=== PATIENT | male | born 1970 | race Caucasian/White ===

== ENCOUNTER 2022-01-28 14:39 | Inpatient (IN) ==
[2022-01-28] MEDS ORDERED: SODIUM CHLORIDE 0.9% 1000ML 1,000 ML IV STA (14:57)
[2022-01-28] MEDS ORDERED: ONDANSETRON INJ 2 MG/ML 2 ML VIAL IV STA (14:57)
[2022-01-28] MEDS ORDERED: PIPERACILLIN/TAZOBACTAM 4.5 GM/120 ML BAG IV ONE (15:26)
[2022-01-28 15:35] LABS: Basophils # (auto) 0.05 K/uL (0-0.2); Basophils % (auto) 0.8 %; Eosinophils # (auto) 0.05 K/uL (0-0.50); Eosinophils % (auto) 0.8 %; Hematocrit (blood only) 43.7 % (40.1-51.0); Hemoglobin 15.7 g/dl (14.0-18.0); Immature Granulocytes # (auto) 0.02 K/uL (0.00-0.02); Immature Granulocytes % (auto) 0.3 %; Lymphocytes % (auto) 22.9 %; Mean Corpuscular Hgb Conc 35.9 g/dL (32.0-36.0); Mean Corpuscular Volume 86.2 fL (80.0-100.0); Mean Platelet Volume 9.8 fL (9.4-12.4); Monocytes # (auto) 0.73 K/uL (0.24-0.82); Monocytes % (auto) 11.1 %; Neutrophils % (auto) 64.1 %; Platelet Count 245 K/uL (130-400); RDW Coefficient of Variation 12.5 % (11.5-14.5); Red Blood Count 5.07 M/uL (4.63-6.08); White Blood Count 6.55 K/ul (4.8-10.8)
--- NOTE | 2022-01-28 15:36 | Emergency Department Note ---
Impression & Plan RUQ abdominal pain, Weakness, Vomiting, Near syncope, Gall stones ED Provider Note NAME: WIL VILLAFUERTE AGE: 51 SEX: M : 1970 ARRIVES VIA: Walk-In INFORMANT: [Patient] ED PROVIDER(S): [Clark Daniel MD] CHIEF COMPLAINT: Abdominal pain HISTORY OF PRESENT ILLNESS: The patient is a 51-year-old male who has felt poorly for weeks. He has lost 40 pounds. He has been sweating, he has been weak, has been exhausted. There has been nausea and vomiting and now, more so just persistent nausea. He has had intermittent mild to moderate right upper quadrant abdominal pain. The patient nearly passed out in the ED waiting room. The patient did have an EGD just recently, things were okay on this study. Today, the patient saw Dr. Wolfe of general surgery. He does have a known gallstone. The patient looked so awful at the office he was referred to the ER for further work-up and hospitalization. The patient gives a history of a brain malignancy. He does not have a headache. He has not noticed arm or leg weakness. There is no chest pain, he has not run a fever. No urinary complaints other than the fact that his urine output decreased. REVIEW OF SYSTEMS: See HPI for pertinent positives and negatives. A total of ten systems were reviewed and were otherwise negative. PMHx/PSHx: See Below SOCIAL HISTORY: See Below. PHYSICAL EXAM: GENERAL: Patient is in no acute distress. HEENT: No acute trauma, normocephalic atraumatic, mucous membranes dry, no nasal congestion, no scleral icterus. NECK: No stridor, no adenopathy, no meningismus, trachea is midline. LUNGS: Clear to auscultation bilaterally, no wheeze, no rhonchi, breath sounds e qual. HEART: Without murmurs gallops or rubs, regular rate and rhythm. ABDOMEN: Soft, mildly tender in the right upper quadrant and epigastrium, bowel sounds positive, no peritonitis. EXTREMITIES: No cyanosis or edema, full range of motion of all the joints without pain or difficulty, no signs for acute trauma. NEUROLOGIC: Oriented x 3, no acute motor or sensory deficits, no focal weakness. SKIN: No rash, no jaundice, no diaphoresis. Pale. DIFFERENTIAL DIAGNOSIS: Infection, dehydration, cholecystitis, brain malignancy, renal or liver failure, metabolic abnormality, hypo/hyperglycemia, electrolyte disturbance, anemia, hypoxia, cardiac sources, intracerebral event, toxicologic issues, stroke, TIA, as well as other pathologies. EMERGENCY DEPARTMENT COURSE/PROCEDURES: ECG: Indication was weakness. The ECG shows a normal sinus rhythm with a rate of 87. There is an inverted T wave in lead III. There is no ST elevation, no PVCs. The QTc is 442. Continuous Cardiac Monitoring: An order was placed for continuous cardiac monitoring. The monitor shows a rate of 68 with normal sinus rhythm. MEDICAL DECISION MAKING: There is no leukocytosis or concerning anemia. There is a normal platelet count. No significant electrolyte abnormality in need of emergent correction. Lactic acid level is not elevated making severe sepsis less likely. No concerning liver enzyme elevation. ECG shows a normal sinus rhythm, no obvious ischemia. Cardiac enzyme testing x1 is not consistent with acute cardiac injury. The patient appeared to be in a euthyroid state. No evidence for pancreatitis by our testing. Urinalysis showed dehydration with 4+ ketones, there was no infection. COVID test returned negative. Chest x-ray did not show pneumonia or CHF. Abdominal and pelvis CT was essentially unremarkable for any acute surgical pathology. Brain CT showed some changes from his previous neurosurgery, no acute process found. On exam, the patient appeared quite dehydrated and pale. He was not febrile. The patient was given IV saline, 2 L. He received IV Zosyn as empiric antibiotic coverage. He was given IV Zofran. The patient is in need of a hospital stay. He has lost 40 pounds, he has almost passed out, he is dehydrated with persistent nausea and vomiting. He does have gallbladder disease but, as to whether or not this is the cause of his entire presentation is unclear. I spoke with the patient and nurse case manager. I spoke with the on-call hospitalist. Past Med/Surg History Medical History Brain tumor blue cell tumor, large cell neuroendocrine Chronic sinusitis Depression GERD (gastroesophageal reflux disease) HLD (hyperlipidemia) Surgical History (Updated 01/28/22 @ 17:34 by Cece Rothman PA-C) History of arthroscopic knee surgery History of craniotomy bifronto orbital craniotomy, to approach extra-axial anterior skull base mass, excision of extra-axial intradural anterior skull base mass, excision of extradural nasal component, fat graft harvest from lower left abdominal quadrant, frontal sinus exenteration, packing and closure using pedicle pericranial flap on 11/05/[address] Lilia PH D History of esophagogastroduodenoscopy (EGD) Family History (Updated 01/28/22 @ 17:35 by Cece Rothman PA-C) Mother Diabetes Heart failure Social History Smoking Status: Never smoker Hx Alcohol Use: Yes Hx Substance Use: No Preferred Language: Lao Communication Ability: Effective marital status: Current Living Situation: Spouse Feels Safe at Home: Yes Allergies Allergies Allergy/AdvReac Type Severity Reaction Status Date / Time No Known Allergies Allergy Unverified 01/28/22 17:23 Home Meds Home Medications Medication Instructions Recorded Confirmed fluoxetine 40 mg capsule 40 mg PO QAM 01/28/22 01/28/22 omeprazole 20 mg capsule,delayed 20 mg PO QAM 01/28/22 01/28/22 release ondansetron HCl 4 mg tablet 8 mg PO Q8 PRN 01/28/22 01/28/22 simvastatin 20 mg tablet 20 mg PO HS 01/28/22 01/28/22 Results & Data (ED) Vital Signs Vital Signs - 24 hr 01/28/22 14:43 01/28/22 15:17 01/28/22 15:18 Temperature 36.6 C Temperature Source Oral Pulse Rate 102 H Pulse Rate [Left Finger] 68 Respiratory Rate 18 20 Respiratory Effort / Characteristics Non-Labored Spontaneous Respiratory Depth Blood Pressure 124/91 Blood Pressure [Left Arm] 114/86 Blood Pressure Mean 102 Blood Pressure Mean [Left Arm] 95 Pulse Oximetry 97 99 Oxygen Delivery Method Room Air Room Air Room Air Sepsis Recent Fever Within 48 Hours No Sepsis New/Unexplained Change in Mental Status No Sepsis Action Taken by Nursing No Action Required 01/28/22 17:30 Temperature Temperature Source Pulse Rate Pulse Rate [Left Finger] 68 Respiratory Rate 20 Respiratory Effort / Characteristics Non-Labored Respiratory Depth Normal Blood Pressure Blood Pressure [Left Arm] 137/96 Blood Pressure Mean Blood Pressure Mean [Left Arm] 109 Pulse Oximetry 98 Oxygen Delivery Method Room Air Sepsis Recent Fever Within 48 Hours Sepsis New/Unexplained Change in Mental Status Sepsis Action Taken by Detention Medications Current Medication List: was personally reviewed by me Laboratory Data Attestation: I reviewed the patient's lab results. Result diagrams: 01/28/22 15:10 01/28/22 15:10 Lab Results 01/28/22 01/28/22 01/28/22 Range/Units 15:10 15:10 15:10 WBC 6.55 (4.8-10.8) K/ul RBC 5.07 (4.63-6.08) M/uL Hgb 15.7 (14.0-18.0) g/dl Hct 43.7 (40.1-51.0) % MCV 86.2 (80.0-100.0) fL MCH 31.0 (25.0-34.0) pg MCHC 35.9 (32.0-36.0) g/dL RDW Std Deviation 39.0 (36.4-46.3) fL RDW Coeff of Katherine 12.5 (11.5-14.5) % Plt Count 245 (130-400) K/uL MPV 9.8 (9.4-12.4) fL Immature Gran % (Auto) 0.3 % Neut % (Auto) 64.1 % Lymph % (Auto) 22.9 % [place] % (Auto) 11.1 % Eos % (Auto) 0.8 % Baso % (Auto) 0.8 % Neut # (Auto) 4.20 (1.4-6.5) K/uL Lymph # (Auto) 1.50 (1.2-3.4) K/uL [place] # (Auto) 0.73 (0.24-0.82) K/uL Eos # (Auto) 0.05 (0-0.50) K/uL Baso # (Auto) 0.05 (0-0.2) K/uL Immature Gran # (Auto) 0.02 (0.00-0.02) K/uL Sodium 134 L (136-145) mmol/L Potassium 4.3 (3.5-5.1) mmol/L Chloride 99 (98-107) mmol/L Carbon Dioxide 23 (21-32) mmol/L Anion Gap 12 H (3-11) BUN 19 (6-23) mg/dl Creatinine 0.94 (0.6-1.4) mg/dl Est Cr Clr Drug Dosing 118.5 ml/min Est GFR ( Amer) 107.6 ml/min Est GFR (Non-Af Amer) 92.8 ml/min BUN/Creatinine Ratio 20.2 H (10-20) Glucose 70 (70-99(Fasting)) mg/dl Lactate 0.6 (0.4-2.0) mmol/L Calcium 9.8 (8.5-10.1) mg/dl Magnesium 1.9 (1.7-2.4) mg/dl Total Bilirubin 1.0 (0.2-1.0) mg/dl AST 22 (13-39) U/L ALT 39 (7-52) U/L Alkaline Phosphatase 81 (34-104) U/L Troponin I High Sens 3.3 (0-20) pg/ml Total Protein 7.4 (6.0-8.3) gm/dl Albumin 4.3 (3.4-5.0) gm/dl Globulin 3.1 (2.5-4.0) gm/dl Albumin/Globulin Ratio 1.4 (0.9-2) Lipase 24 (11-82) U/L TSH (0.300-4.500) uIu/ml Urine Color Urine Appearance (Clear) Urine pH (4.5-7.5) Ur Specific [place] (1.000-1.030) Urine Protein (Negative) Urine Glucose (UA) (Negative) Urine Ketones (Negative) Urine Blood (Negative) Urine Nitrite (Negative) Urine Bilirubin (Negative) Urine Urobilinogen (Negative) Ur Leukocyte Esterase (Negative) Urine WBC (Auto) (0-5) /hpf Urine RBC (Auto) (0-4) /hpf U Hyaline Cast (Auto) (0-5) /lpf U Epithel Cells (Auto) (0-5) /lpf Urine Bacteria (Auto) (Negative) SARS-CoV-2, RNA, NAAT (NEGATIVE) 01/28/22 01/28/22 01/28/22 Range/Units 15:10 15:24 17:05 WBC (4.8-10.8) K/ul RBC (4.63-6.08) M/uL Hgb (14.0-18.0) g/dl Hct (40.1-51.0) % MCV (80.0-100.0) fL MCH (25.0-34.0) pg MCHC (32.0-36.0) g/dL RDW Std Deviation (36.4-46.3) fL RDW Coeff of Katherine (11.5-14.5) % Plt Count (130-400) K/uL MPV (9.4-12.4) fL Immature Gran % (Auto) % Neut % (Auto) % Lymph % (Auto) % [place] % (Auto) % Eos % (Auto) % Baso % (Auto) % Neut # (Auto) (1.4-6.5) K/uL Lymph # (Auto) (1.2-3.4) K/uL [place] # (Auto) (0.24-0.82) K/uL Eos # (Auto) (0-0.50) K/uL Baso # (Auto) (0-0.2) K/uL Immature Gran # (Auto) (0.00-0.02) K/uL Sodium (136-145) mmol/L Potassium (3.5-5.1) mmol/L Chloride (98-107) mmol/L Carbon Dioxide (21-32) mmol/L Anion Gap (3-11) BUN (6-23) mg/dl Creatinine (0.6-1.4) mg/dl Est Cr Clr Drug Dosing ml/min Est GFR ( Amer) ml/min Est GFR (Non-Af Amer) ml/min BUN/Creatinine Ratio (10-20) Glucose (70-99(Fasting)) mg/dl Lactate (0.4-2.0) mmol/L Calcium (8.5-10.1) mg/dl Magnesium (1.7-2.4) mg/dl Total Bilirubin (0.2-1.0) mg/dl AST (13-39) U/L ALT (7-52) U/L Alkaline Phosphatase (34-104) U/L Troponin I High Sens (0-20) pg/ml Total Protein (6.0-8.3) gm/dl Albumin (3.4-5.0) gm/dl Globulin (2.5-4.0) gm/dl Albumin/Globulin Ratio (0.9-2) Lipase (11-82) U/L TSH 1.065 (0.300-4.500) uIu/ml Urine Color Dark Yellow Urine Appearance Clear (Clear) Urine pH 5.5 (4.5-7.5) Ur Specific [place] 1.039 H (1.000-1.030) Urine Protein Trace H (Negative) Urine Glucose (UA) Negative (Negative) Urine Ketones 4+ H (Negative) Urine Blood Negative (Negative) Urine Nitrite Negative (Negative) Urine Bilirubin 1+ H (Negative) Urine Urobilinogen Negative (Negative) Ur Leukocyte Esterase Negative (Negative) Urine WBC (Auto) 1-5 (0-5) /hpf Urine RBC (Auto) 0-4 (0-4) /hpf U Hyaline Cast (Auto) 5-10 H (0-5) /lpf U Epithel Cells (Auto) 10-20 H (0-5) /lpf Urine Bacteria (Auto) Negative (Negative) SARS-CoV-2, RNA, NAAT NEGATIVE (NEGATIVE) Administered Medications Sodium Chloride (Nss 1000ml) 1,000 mls @ 80 mls/hr IV .[id number] DEMETRIA Stop: 01/29/22 20:03 Last Admin: 01/28/22 19:51 Dose: 80 mls/hr Documented by: [id number] Discontinued Medications Sodium Chloride (Nss 1000ml) 1,000 mls @ 999 mls/hr IV .Q1H1M STA Stop: 01/28/22 15:57 Last Infusion: 01/28/22 16:29 Dose: 0 mls/hr Documented by: [id number] Admin: 01/28/22 15:25 Dose: 999 mls/hr Documented by: [id number] Piperacillin Sod/Tazobactam Sod (Zosyn) 4.5 gm in 120 mls @ 240 mls/hr IV NOW ONE Stop: 01/28/22 15:55 Last Infusion: 01/28/22 18:26 Dose: 0 mls/hr Documented by: [id number] Admin: 01/28/22 17:02 Dose: 240 mls/hr Documented by: [id number] Sodium Chloride (Nss 1000ml) 1,000 mls @ 999 mls/hr IV .Q1H1M ONE Stop: 01/28/22 18:03 Last Infusion: 01/28/22 19:53 Dose: 0 mls/hr Documented by: [id number] Admin: 01/28/22 18:00 Dose: 999 mls/hr Documented by: [id number] Ioversol (Optiray 320 100ml) 90 ml IV ONCE ONE Stop: 01/28/22 16:42 Last Admin: 01/28/22 16:42 Dose: 90 ml Documented by: [id number] Ondansetron HCl (Ondansetron Inj 2 Mg/Ml 2 Ml Vial) 4 mg IV NOW STA Stop: 01/28/22 14:58 Last Admin: 01/28/22 15:25 Dose: 4 mg Documented by: [id number] Imaging Data Radiologist's Impression: Abdomen/Pelvis CT 01/28/22 14:57 CT SCAN OF THE ABDOMEN AND PELVIS WITH IV CONTRAST CLINICAL HISTORY: Right-sided abdominal pain. Vomiting. COMPARISON STUDY: No priors. TECHNIQUE: Following the IV administration of 90 cc of Optiray 320, CT scan of the abdomen and pelvis is performed from the lung bases to the proximal femora. Images are reviewed in the axial, sagittal, and coronal planes. IV contrast was administered without complication. A dose lowering technique was utilized adhering to the principles of ALARA. FINDINGS: Lung bases: The tip of a central venous infusion port terminates at the cavoatri al junction. The heart is normal in size and without pericardial effusion. The lung bases are clear noting dependent atelectasis. Liver: The contrast-enhanced liver is normal in size, contour, and attenuation. Focal fatty infiltration is seen adjacent to the falciform ligament. There is no intrahepatic biliary ductal dilatation. The hepatic veins and portal veins are patent. Gallbladder: Unremarkable. Spleen: Normal in size and attenuation. Pancreas: Unremarkable. Adrenal glands: Unremarkable. Kidneys: The contrast enhanced kidneys are normal in size and without hydronephrosis. The kidneys enhance symmetrically. Abdominal vasculature: The abdominal aorta is normal in course and caliber noting mild atherosclerotic calcification. Bowel: There is advanced colonic diverticulosis without CT evidence of acute diverticulitis. No bowel obstruction is seen. Residual enteric contrast is alegria ggested throughout the colon. The appendix is well-visualized and normal. Peritoneum: There is no intraperitoneal free air or abdominal ascites. Lymphadenopathy: None. Pelvic viscera: The bladder, prostate, and seminal vesicles are normal as visualized. Skeletal structures: No lytic or blastic lesions are seen. There is moderate to advanced disc space narrowing at L5-S1 with a posterior disc osteophyte complex. 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 IMPRESSION: 1. No acute infectious or inflammatory findings are identified in the abdomen or pelvis. 2. Advanced colonic diverticulosis without CT evidence of acute diverticulitis. 3. Avascular necrosis of the femoral heads. ACT 112: Negative or not required by law. Electronically signed by: Clark Yang M.D. 01/28/2022 4:56 PM Chest X-Ray 01/28/22 14:57 XR chest 1V portable HISTORY: Generalized abdominal pain. COMPARISON: None. FINDINGS: The lungs are clear. Cardiac silhouette is normal in size. No pleural effusions. No pneumothorax. Right-sided Port-A-Cath terminates in the distal SVC. IMPRESSION: No acute process. ACT 112: Negative or not required by law. Electronically signed by: Peng Rao M.D. 01/28/2022 3:[address] 01/28/22 14:57 CT SCAN OF THE BRAIN COMBO CLINICAL HISTORY: Vomiting. Reported history of brain tumor. COMPARISON STUDY: No priors. TECHNIQUE: [place] CT scan of the brain is performed from the vertex to the skull base before and following the IV administration of 90 cc of Optiray 320. IV contrast was administered without complication. A dose lowering technique was utilized adhering to the principles of ALARA. CT DOSE: 2295.10 mGy.cm FINDINGS: Brain parenchyma: Bifrontal encephalomalacia is likely related to previous surgical resection. Minimal hyperdensity deep to the craniotomy site likely represents postoperative change. There is no evidence of enhancing lesion at the operative site. There is no hemorrhage, mass effect, or evidence of acute territorial ischemia by CT criteria. Patel-white matter differentiation is preserved. No extra-axial fluid collection is seen. Ventricles, sulci, cisterns: Normal in configuration. Intracranial vasculature: The visualized intracranial vessels the skull base appear patent. There is mild atherosclerotic calcification of the cavernous carotid arteries. Calvarium: There is postoperative change from previous frontal craniotomy. No destructive calvarial lesion is seen. Sinuses and mastoids: There is complete opacification of the frontal sinuses. The remaining visualized paranasal sinuses are clear. The mastoid air cells are well pneumatized. Orbits: The bony orbits are grossly intact. IMPRESSION: 1. There is no hemorrhage, mass effect, or evidence of acute territorial ischemia by CT criteria. 2. Postoperative change and bifrontal encephalomalacia as above. There is no CT evidence of recurrent or residual enhancing lesion. ACT 112: Negative or not required by law. Electronically signed by: Clark Yang M.D. 01/28/2022 4:51 PM Discharge Plan Visit Data Chief Complaint: Abdominal Pain Stated Complaint: ABDOMINAL PAIN JULES WOLFE REF ED Provider: Clark Daniel Discharge Problem: RUQ abdominal pain, Weakness, Vomiting, Near syncope, Gall stones Patient Disposition: Admitted As Inpatient Condition: Fair Discharge Instructions Interventions: ED Discharge Assessment Last Done: 01/28/22 18:52
[2022-01-28 16:17] LABS: Troponin I High Sensitivity 3.3 pg/ml (0-20)
[2022-01-28 16:21] LABS: Albumin Globulin Ratio 1.4 (0.9-2); Albumin Level 4.3 gm/dl (3.4-5.0); BUN Creatinine Ratio 20.2 (10-20); Calcium 9.8 mg/dl (8.5-10.1); Creatinine Clr Calc Pharmacy 118.5 ml/min; Est GFR (African American) 107.6 ml/min; Est GFR (Non-African American) 92.8 ml/min; Globulin 3.1 gm/dl (2.5-4.0); Magnesium 1.9 mg/dl (1.7-2.4); Potassium 4.3 mmol/L (3.5-5.1); Total Protein 7.4 gm/dl (6.0-8.3)
[2022-01-28] MEDS ORDERED: OPTIRAY 320 100ml IV ONE (16:41)
--- NOTE | 2022-01-28 16:53 | CT Scan Report ---
CT SCAN OF THE BRAIN COMBO CLINICAL HISTORY: Vomiting. Reported history of brain tumor. COMPARISON STUDY: No priors. TECHNIQUE: [place] CT scan of the brain is performed from the vertex to the skull base before and follow ing the IV administration of 90 cc of Optiray 320. IV contrast was administered without complication. A dose lowering technique was utilized adhering to the principles of ALARA. CT DOSE: 2295.10 mGy.cm FINDINGS: Brain parenchyma: Bifrontal encephalomalacia is likely related to previous surgical resection. Minima l hyperdensity deep to the craniotomy site likely represents postoperative change. There is no eviden ce of enhancing lesion at the operative site. There is no hemorrhage, mass effect, or evidence of acu te territorial ischemia by CT criteria. Patel-white matter differentiation is preserved. No extra-axia l fluid collection is seen. Ventricles, sulci, cisterns: Normal in configuration. Intracranial vasculature: The visualized intracranial vessels the skull base appear patent. There is mild atherosclerotic calcification of the cavernous carotid arteries. Calvarium: There is postoperative change from previous frontal craniotomy. No destructive calvarial l esion is seen. Sinuses and mastoids: There is complete opacification of the frontal sinuses. The remaining visualize d paranasal sinuses are clear. The mastoid air cells are well pneumatized. Orbits: The bony orbits are grossly intact. IMPRESSION: 1. There is no hemorrhage, mass effect, or evidence of acute territorial ischemia by CT criteria. 2. Postoperative change and bifrontal encephalomalacia as above. There is no CT evidence of recurrent or residual enhancing lesion. ACT 112: Negative or not required by law. Electronically signed by: Clark Yang M.D. 01/28/2022 4:51 PM
--- NOTE | 2022-01-28 16:58 | CT Scan Report ---
CT SCAN OF THE ABDOMEN AND PELVIS WITH IV CONTRAST CLINICAL HISTORY: Right-sided abdominal pain. Vomiting. COMPARISON STUDY: No priors. TECHNIQUE: Following the IV administration of 90 cc of Optiray 320, CT scan of the abdomen and pelvi s is performed from the lung bases to the proximal femora. Images are reviewed in the axial, sagittal , and coronal planes. IV contrast was administered without complication. A dose lowering technique wa s utilized adhering to the principles of ALARA. FINDINGS: Lung bases: The tip of a central venous infusion port terminates at the cavoatrial junction. The hear t is normal in size and without pericardial effusion. The lung bases are clear noting dependent atele ctasis. Liver: The contrast-enhanced liver is normal in size, contour, and attenuation. Focal fatty infiltrat ion is seen adjacent to the falciform ligament. There is no intrahepatic biliary ductal dilatation. T he hepatic veins and portal veins are patent. Gallbladder: Unremarkable. Spleen: Normal in size and attenuation. Pancreas: Unremarkable. Adrenal glands: Unremarkable. Kidneys: The contrast enhanced kidneys are normal in size and without hydronephrosis. The kidneys enh ance symmetrically. Abdominal vasculature: The abdominal aorta is normal in course and caliber noting mild atheroscleroti c calcification. Bowel: There is advanced colonic diverticulosis without CT evidence of acute diverticulitis. No bowel obstruction is seen. Residual enteric contrast is suggested throughout the colon. The appendix is w ell-visualized and normal. Peritoneum: There is no intraperitoneal free air or abdominal ascites. Lymphadenopathy: None. Pelvic viscera: The bladder, prostate, and seminal vesicles are normal as visualized. Skeletal structures: No lytic or blastic lesions are seen. There is moderate to advanced disc space n arrowing at L5-S1 with a posterior disc osteophyte complex. There is avascular necrosis of the femora l heads. IMPRESSION: 1. No acute infectious or inflammatory findings are identified in the abdomen or pelvis. 2. Advanced colonic diverticulosis without CT evidence of acute diverticulitis. 3. Avascular necrosis of the femoral heads. ACT 112: Negative or not required by law. Electronically signed by: Clark Yang M.D. 01/28/2022 4:56 PM
[2022-01-28] MEDS ORDERED: SODIUM CHLORIDE 0.9% 1000ML 1,000 ML IV ONE (17:03)
--- NOTE | 2022-01-28 17:43 | History & Physical Report ---
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 Diaz, please see addendum History of Present Illness Chief Complaint: Referred by general surgery due to abnormal gallbladder ultrasound. 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 He was seen in clinic today by general surgery for follow-up with EGD. He recently underwent EGD which was negative for gastritis or ulcers. He persistently has nausea, vomiting and right upper quadrant discomfort and unable to hold food down. He has lost 40 pounds in the past month. He was sent home from work today due to feeling dizzy and unable to stand. Today in clinic he was pale, diaphoretic with mild right upper quadrant pain. He was sent to ED and per Dr. Trevizo will likely need urgent laparoscopic cholecystectomy. Patient states his symptoms started on november,. He complains of nausea, queasiness and pain to his right upper quadrant epigastrium. He states pain is constant does get worse with meals. He has been unable to tolerate food secondary to significant nausea and queasiness. He describes a sensation as if he was drinking all night and woke up with a hangover and was sick to stomach. The sensation is constant and the smell of food makes it worse. He last ate chicken soup on Tuesday otherwise only tolerating Ensure and water. His is at bedside. He has lost 40 pounds going from 270s to 230s. He denies any sick contacts. He denies fever but admits to constantly being cold. He denies sweats, syncope, chest pain, shortness with, cough, hemoptysis, hematemesis, melena, medic easier, dysuria, increased urgency or frequency with urination. Recently he has felt lightheaded and dizzy with movement secondary to lack of oral intake. He further admits approximately 2 to 3 months ago he used to get sharp stabbing pains in his right upper quadrant that would last 3 to 4 hours. He denies that this was associated with any fatty meals. He states he can occur in the middle the night. He has not been able to take his medications except for omeprazole and zofran. Zofran has helped nausea but still can't eat. He has been following closely with neurosurgery and recently had an MRI. Per at beside they saw 2 concerning spots but want to repeat at end of January. Allergies Allergy/AdvReac Type Severity Reaction Status Date / Time No Known Allergies Allergy Unverified 01/28/22 17:23 Home Medications Medication Instructions Recorded Confirmed Type fluoxetine 40 mg capsule 40 mg PO QAM 01/28/22 01/28/22 History omeprazole 20 mg capsule,delayed 20 mg PO QAM 01/28/22 01/28/22 History release ondansetron HCl 4 mg tablet 8 mg PO Q8 PRN 01/28/22 01/28/22 History simvastatin 20 mg tablet 20 mg PO HS 01/28/22 01/28/22 History Past Med/Surg History Medical History (Updated 01/28/22 @ 18:38 by Cece Rothman PA-C) Brain tumor blue cell tumor, large cell neuroendocrine Chronic sinusitis Depression GERD (gastroesophageal reflux disease) HLD (hyperlipidemia) Surgical History (Updated 01/28/22 @ 17:34 by Cece Rothman PA-C) History of arthroscopic knee surgery History of craniotomy bifronto orbital craniotomy, to approach extra-axial anterior skull base mass, excision of extra-axial intradural anterior skull base mass, excision of extradural nasal component, fat graft harvest from lower left abdominal quadrant, frontal sinus exenteration, packing and closure using pedicle pericranial flap on 11/05/[address] Lilia PH D History of esophagogastroduodenoscopy (EGD) Family History (Updated 01/28/22 @ 17:35 by Cece Rothman PA-C) Mother Diabetes Heart failure Social History (Updated 01/28/22 @ 17:34 by Cece Rothman PA-C) Smoking Status: Never smoker Hx Alcohol Use: Yes Hx Substance Use: No Preferred Language: German Communication Ability: Effective marital status: Current Living Situation: Spouse Feels Safe at Home: Yes Review of Systems Review of Systems: All systems reviewed & are unremarkable except as noted in HPI & below Physical Exam Physical Exam: Constitutional: chronic ill appearing, M, vitals as above, NAD, sitting up in bed, pleasant, conversing easily Head: Normocephalic, Atraumatic, b/l temporal wasting Eyes: PERRL, conjunctivae normal, anicteric sclerae ENMT: external ear and nose normal, oropharynx normal Neck: trachea midline, no thyromegaly normal visual inspection Respiratory: normal respiratory effort, lungs clear to auscultation, no wheeze, rales, rhonchi. Normal insp/exp effort, no accessory muscle use Cardiovascular: RRR, no murmur, no edema Vessels: no JVD or carotid bruit Chest: normal inspection of chest , R ACW Port, no surrounding erythema Abdomen: normal bowel sounds, soft, pain to palp RUQ and epigastrum, no rebound, guarding or tenderness, no hepatosplenomegaly Musculoskeletal: no cyanosis or clubbing, extremities motor strength 5/5 Skin: no rashes, warm and dry normal turgor Neurologic: PERRL, EOMI, accommodation nl, no face palsy, no dysarthria CN's II-XI intact bilaterally and moves all extremities Psychiatric: A+Ox3, euthymic affect Lymphatic: no cervical or axillary lymphadenopathy : deferred Results & Data Results & Data ([facility]) Vital Signs (Past 12 Hours) Vital Signs Temp Pulse Pulse Resp BP BP Pulse Ox 01/28/22 17:30 68 20 137/96 98 01/28/22 15:18 68 20 114/86 99 01/28/22 14:43 36.6 C 102 H 18 124/91 97 Diagnostic Findings Abdomen/Pelvis CT 01/28/22 14:57 CT SCAN OF THE ABDOMEN AND PELVIS WITH IV CONTRAST CLINICAL HISTORY: Right-sided abdominal pain. Vomiting. COMPARISON STUDY: No priors. TECHNIQUE: Following the IV administration of 90 cc of Optiray 320, CT scan of the abdomen and pelvis is performed from the lung bases to the proximal femora. Images are reviewed in the axial, sagittal, and coronal planes. IV contrast was administered without complication. A dose lowering technique was utilized adhering to the principles of ALARA. FINDINGS: Lung bases: The tip of a central venous infusion port terminates at the cavoatrial junction. The heart is normal in size and without pericardial effusion. The lung bases are clear noting dependent atelectasis. Liver: The contrast-enhanced liver is normal in size, contour, and attenuation. Focal fatty infiltration is seen adjacent to the falciform ligament. There is no intrahepatic biliary ductal dilatation. The hepatic veins and portal veins are patent. Gallbladder: Unremarkable. Spleen: Normal in size and attenuation. Pancreas: Unremarkable. Adrenal glands: Unremarkable. Kidneys: The contrast enhanced kidneys are normal in size and without hydronephrosis. The kidneys enhance symmetrically. Abdominal vasculature: The abdominal aorta is normal in course and caliber noting mild atherosclerotic calcification. Bowel: There is advanced colonic diverticulosis without CT evidence of acute diverticulitis. No bowel obstruction is seen. Residual enteric contrast is suggested throughout the colon. The appendix is well-visualized and normal. Peritoneum: There is no intraperitoneal free air or abdominal ascites. Lymphadenopathy: None. Pelvic viscera: The bladder, prostate, and seminal vesicles are normal as visualized. Skeletal structures: No lytic or blastic lesions are seen. There is moderate to advanced disc space narrowing at L5-S1 with a posterior disc osteophyte complex. 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 IMPRESSION: 1. No acute infectious or inflammatory findings are identified in the abdomen or pelvis. 2. Advanced colonic diverticulosis without CT evidence of acute diverticulitis. 3. Avascular necrosis of the femoral heads. ACT 112: Negative or not required by law. Electronically signed by: Clark Yang M.D. 01/28/2022 4:56 PM Chest X-Ray 01/28/22 14:57 XR chest 1V portable HISTORY: Generalized abdominal pain. COMPARISON: None. FINDINGS: The lungs are clear. Cardiac silhouette is normal in size. No pleural effusions. No pneumothorax. Right-sided Port-A-Cath terminates in the distal SVC. IMPRESSION: No acute process. ACT 112: Negative or not required by law. Electronically signed by: Peng Rao M.D. 01/28/2022 3:[address] 01/28/22 14:57 CT SCAN OF THE BRAIN COMBO CLINICAL HISTORY: Vomiting. Reported history of brain tumor. COMPARISON STUDY: No priors. TECHNIQUE: Byars CT scan of the brain is performed from the vertex to the skull base before and following the IV administration of 90 cc of Optiray 320. IV contrast was administered without complication. A dose lowering technique was utilized adhering to the principles of ALARA. CT DOSE: 2295.10 mGy.cm FINDINGS: Brain parenchyma: Bifrontal encephalomalacia is likely related to previous surgical resection. Minimal hyperdensity deep to the craniotomy site likely represents postoperative change. There is no evidence of enhancing lesion at the operative site. There is no hemorrhage, mass effect, or evidence of acute territorial ischemia by CT criteria. Patel-white matter differentiation is preserved. No extra-axial fluid collection is seen. Ventricles, sulci, cisterns: Normal in configuration. Intracranial vasculature: The visualized intracranial vessels the skull base appear patent. There is mild atherosclerotic calcification of the cavernous carotid arteries. Calvarium: There is postoperative change from previous frontal craniotomy. No destructive calvarial lesion is seen. Sinuses and mastoids: There is complete opacification of the frontal sinuses. The remaining visualized paranasal sinuses are clear. The mastoid air cells are well pneumatized. Orbits: The bony orbits are grossly intact. IMPRESSION: 1. There is no hemorrhage, mass effect, or evidence of acute territorial ischemia by CT criteria. 2. Postoperative change and bifrontal encephalomalacia as above. There is no CT evidence of recurrent or residual enhancing lesion. ACT 112: Negative or not required by law. Electronically signed by: Clark Yang M.D. 01/28/2022 4:51 PM Medications Administered Medication List Discontinued Medications Sodium Chloride (Nss 1000ml) 1,000 mls @ 999 mls/hr IV .Q1H1M STA Stop: 01/28/22 15:57 Last Infusion: 01/28/22 16:29 Dose: 0 mls/hr Documented by: [id number] Admin: 01/28/22 15:25 Dose: 999 mls/hr Documented by: [id number] Piperacillin Sod/Tazobactam Sod (Zosyn) 4.5 gm in 120 mls @ 240 mls/hr IV NOW ONE Stop: 01/28/22 15:55 Last Admin: 01/28/22 17:02 Dose: 240 mls/hr Documented by: [id number] Ioversol (Optiray 320 100ml) 90 ml IV ONCE ONE Stop: 01/28/22 16:42 Last Admin: 01/28/22 16:42 Dose: 90 ml Documented by: [id number] Ondansetron HCl (Ondansetron Inj 2 Mg/Ml 2 Ml Vial) 4 mg IV NOW STA Stop: 01/28/22 14:58 Last Admin: 01/28/22 15:25 Dose: 4 mg Documented by: [id number] ECG Rate (beats per minute): 87 Rhythm: normal sinus COVID-19 Results Results COVID-19 Adm Lab Results: RBC 5.07 M/uL (4.63-6.08) 01/28/22 WBC 6.55 K/ul (4.8-10.8) 01/28/22 Hgb 15.7 g/dl (14.0-18.0) 01/28/22 Hct 43.7 % (40.1-51.0) 01/28/22 Plt Count 245 K/uL (130-400) 01/28/22 Neutrophils (%) (Auto) 64.1 % 01/28/22 Lymphocytes (%) (Auto) 22.9 % 01/28/22 Monocytes # (Auto) 0.73 K/uL (0.24-0.82) 01/28/22 Eosinophils # (Auto) 0.05 K/uL (0-0.50) 01/28/22 Immature Granulocyte % (Auto) 0.3 % 01/28/22 Neutrophils # (Auto) 4.20 K/uL (1.4-6.5) 01/28/22 Lymphocytes # (Auto) 1.50 K/uL (1.2-3.4) 01/28/22 Monocytes # (Auto) 0.73 K/uL (0.24-0.82) 01/28/22 Eosinophils # (Auto) 0.05 K/uL (0-0.50) 01/28/22 Basophils # (Auto) 0.05 K/uL (0-0.2) 01/28/22 Immature Granulocyte # (Auto) 0.02 K/uL (0.00-0.02) 01/28/22 Na 134 mmol/L (136-145) L 01/28/22 K 4.3 mmol/L (3.5-5.1) 01/28/22 Cl 99 mmol/L (98-107) 01/28/22 CO2 23 mmol/L (21-32) 01/28/22 Anion Gap 12 (3-11) H 01/28/22 BUN 19 mg/dl (6-23) 01/28/22 Creatinine 0.94 mg/dl (0.6-1.4) 01/28/22 BUN/Creatinine Ratio 20.2 (10-20) H 01/28/22 Glucose Level 70 mg/dl (70-99(Fasting)) 01/28/22 Ca 9.8 mg/dl (8.5-10.1) 01/28/22 Total Bilirubin 1.0 mg/dl (0.2-1.0) 01/28/22 AST/SGOT 22 U/L (13-39) 01/28/22 ALT/SGPT 39 U/L (7-52) 01/28/22 Alkaline Phosphatase 81 U/L (34-104) 01/28/22 Total Protein 7.4 gm/dl (6.0-8.3) 01/28/22 Albumin 4.3 gm/dl (3.4-5.0) 01/28/22 Globulin 3.1 gm/dl (2.5-4.0) 01/28/22 Albumin/Globulin Ratio 1.4 (0.9-2) 01/28/22 SARS-CoV-2, RNA, NAAT NEGATIVE (NEGATIVE) 01/28/22 Chest X-Ray 01/28/22 Code Status & VTE Plan Code Status FULL CODE VTE Prophylaxis Plan VTE Prophylaxis will be ordered: Yes Supervising Physician Co-Signing Physician Notes Right 51-year-old gentleman with 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 Patient reports decreased appetite since November associated with persistent nausea, vomiting; and almost daily right upper quadrant discomfort since last 1 week. He reports losing 40 pounds in the past month. He is feeling weak and dizzy lately. In fact he was sent from work today due to feeling dizzy. Admitting labs reviewed, mild hyponatremia likely due to decreased appetite. Admitting CTAP with bilateral femoral head AVN, no other acute findings. Admitting CT head and CXR with no acute findings. With regard to his abdominal pain and abnormal GB US as an outpatient, will consult surgery, clear liquids for now, n.p.o. midnight, on IV fluid, pain and nausea control. No RUQ tenderness on exam, no signs of infection noted, will monitor off of antibiotic for now. With regard to his failure to thrive and weight loss, will consult dietitian. With regard to his avascular necrosis of bilateral femoral heads, patient will need to establish Ortho as an outpatient. GENERAL: Alert and oriented x3. NAD, on RA. Appears ill and older than age. HEENT: No pallor, no icterus. Pupils equal, round and reactive to light. Oral mucosa moist. Healed surgical scar over the scalp in the coronal plane. Bitemporal wasting noted. Xanthelasma bilateral eyes noted. NECK: No JVD, no neck masses. HEART: S1 and S2 heard. Regular rate and rhythm. No murmur, no gallop. Right chest port noted without signs of infection. RESPIRATORY SYSTEM: Normal AP diameter. No accessory muscle use. No wheezing, no crackles. ABDOMEN: Soft, bowel sounds present, nontender, no distention. CENTRAL NERVOUS SYSTEM: No facial droop. Speech is clear. Obeys simple commands. Moves extremities. EXTREMITIES: No edema, no erythema seen. I have seen and examined the patient and have discussed the case with the provider above. I agree with the assessment and plan as stated.
[2022-01-28 18:42] LABS: Appearance Urine Clear (Clear); Bacteria Urine Automated Negative (Negative); Blood Urine Negative (Negative); Color Urine Dark Yellow; Glucose Urine UA Negative (Negative); Ketones Urine 4+ (Negative); Leukocyte Esterase Urine Negative (Negative); Nitrite Urine Negative (Negative); Protein Urine Trace (Negative); RBC Urine Automated 0-4 /hpf (0-4); Specific Gravity Urine 1.039 (1.000-1.030); Urobilinogen Urine Negative (Negative); pH Urine 5.5 (4.5-7.5)
[2022-01-28 18:46] LABS: Bilirubin Urine 1+ (Negative)
[2022-01-28] MEDS ORDERED: ONDANSETRON INJ 2 MG/ML 2 ML VIAL IV PRN (19:04)
[2022-01-28] MEDS ORDERED: MoRPHine SULFATE 2 MG/ML CARP IV PRN (19:04)
[2022-01-28] MEDS ORDERED: MAGNESIUM HYDROXIDE SUSP 30 ML UDC PO PRN (19:04)
[2022-01-28] MEDS ORDERED: ACETAMINOPHEN 325 MG TAB PO PRN (19:04)
[2022-01-28] MEDS ORDERED: ALUMINUM/MAGNESIUM SUSP 30 ML UDC PO PRN (19:04)
[2022-01-28] MEDS ORDERED: POLYETHYLENE (MIRALAX) 17 GM PACK PO PRN (19:04)
[2022-01-28] MEDS: SODIUM CHLORIDE 0.9% 1000ML 1,000 ML IV SCH (19:51)
--- NOTE | 2022-01-28 20:27 | Surgery Consultation ---
Date of Consultation January 28, 2022 Assessment & Plan (1) Acute cholecystitis due to biliary calculus: pt is a 51 year-old male who presents to er with weakness, pt had U/S study diagnosis-gallstone with RUQ pain, IMP: acute cholecystitis, cholelithiasis, plan, base on pt is still have RUQ pain, I recommend to do laparoscopic cholecystectomy, possible open or cholangiogram tomorrow, D/W benefits, risks and alternatives of the surgery, the risks - infection, bleeding, injury other organs, may need ERCP, head bleeding, , pt understood, he agrees with surgery, he signed informed consent, I answered all questions, U/s study gallbladder, NPO after MN, repeat labs in morning, Supervising Physician Co-Signing Physician Notes Right 51-year-old gentleman with 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 Patient reports decreased appetite since November associated with persistent nausea, vomiting; and almost daily right upper quadrant discomfort since last 1 week. He reports losing 40 pounds in the past month. He is feeling weak and dizzy lately. In fact he was sent from work today due to feeling dizzy. Admitting labs reviewed, mild hyponatremia likely due to decreased appetite. Admitting CTAP with bilateral femoral head AVN, no other acute findings. Admitting CT head and CXR with no acute findings. With regard to his abdominal pain and abnormal GB US as an outpatient, will consult surgery, clear liquids for now, n.p.o. midnight, on IV fluid, pain and nausea control. No RUQ tenderness on exam, no signs of infection noted, will monitor off of antibiotic for now. With regard to his failure to thrive and weight loss, will consult dietitian. With regard to his avascular necrosis of bilateral femoral heads, patient will need to establish Ortho as an outpatient. GENERAL: Alert and oriented x3. NAD, on RA. Appears ill and older than age. HEENT: No pallor, no icterus. Pupils equal, round and reactive to light. Oral mucosa moist. Healed surgical scar over the scalp in the coronal plane. Bitemporal wasting noted. Xanthelasma bilateral eyes noted. NECK: No JVD, no neck masses. HEART: S1 and S2 heard. Regular rate and rhythm. No murmur, no gallop. Right chest port noted without signs of infection. RESPIRATORY SYSTEM: Normal AP diameter. No accessory muscle use. No wheezing, no crackles. ABDOMEN: Soft, bowel sounds present, nontender, no distention. CENTRAL NERVOUS SYSTEM: No facial droop. Speech is clear. Obeys simple commands. Moves extremities. EXTREMITIES: No edema, no erythema seen. I have seen and examined the patient and have discussed the case with the provider above. I agree with the assessment and plan as stated. History of Present Illness Reason for Consultation: acute cholecystitis Requesting Physician: Talia Diaz MD Attending Physician: Talia Diaz MD History of Present Illness Chief Complaint: Referred by general surgery due to abnormal gallbladder ultrasound. 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 He was seen in clinic today by general surgery for follow-up with EGD. He recently underwent EGD which was negative for gastritis or ulcers. He persistently has nausea, vomiting and right upper quadrant discomfort and unable to hold food down. He has lost 40 pounds in the past month. He was sent home from work today due to feeling dizzy and unable to stand. Today in clinic he was pale, diaphoretic with mild right upper quadrant pain. He was sent to ED a nd per Dr. Trevizo will likely need urgent laparoscopic cholecystectomy. Patient states his symptoms started on november,. He complains of nausea, queasiness and pain to his right upper quadrant epigastrium. He states pain is constant does get worse with meals. He has been unable to tolerate food secondary to significant nausea and queasiness. He describes a sensation as if he was drinking all night and woke up with a hangover and was sick to stomach. The sensation is constant and the smell of food makes it worse. He last ate chicken soup on Tuesday otherwise only tolerating Ensure and water. His is at bedside. He has lost 40 pounds going from 270s to 230s. He denies any sick contacts. He denies fever but admits to constantly being cold. He denies sweats, syncope, chest pain, shortness with, cough, hemoptysis, hematemesis, melena, medic easier, dysuria, increased urgency or frequency with urination. Recently he has felt lightheaded and dizzy with movement secondary to lack of oral intake. He further admits approximately 2 to 3 months ago he used to get sharp stabbing pains in his right upper quadrant that would last 3 to 4 hours. He denies that this was associated with any fatty meals. He states he can occur in the middle the night. He has not been able to take his medications except for omeprazole and zofran. Zofran has helped nausea but still can't eat. He has been following closely with neurosurgery and recently had an MRI. Per at beside they saw 2 concerning spots but want to repeat at end of January. I ( Jennifer Real MD ) got a call for consult cholecystitis, I reviewed pt's H/P, labs, CT scan with pt, Allergies Allergy/AdvReac Type Severity Reaction Status Date / Time No Known Allergies Allergy Unverified 01/28/22 17:23 Home Medications Medication Instructions Recorded Confirmed Type fluoxetine 40 mg capsule 40 mg PO QAM 01/28/22 01/28/22 Histor y omeprazole 20 mg capsule,delayed 20 mg PO QAM 01/28/22 2 History release ondansetron HCl 4 mg tablet 8 mg PO Q8 PRN 01/28/22 01/28/22 His tory simvastatin 20 mg tablet 20 mg PO HS 01/28/22 01/28/22 Histor y Past Med/Surg History Medical History(Updated 01/28/22 @ 18:38 by Cece Rothman PA-C) Brain tumor blue cell tumor, large cell neuroendocrineChronic sinusitis Depression GERD (gastroesophageal reflux disease) HLD (hyperlipidemia) Surgical History(Updated 01/28/22 @ 17:34 by Cece Rothman PA-C) History of arthroscopic knee surgery History of craniotomy bifronto orbital craniotomy, to approach extra-axial anterior skull base mass, excision of extra-axial intradural anterior skull base mass, excision of extradural nasal component, fat graft harvest from lower left abdominal quadrant, frontal sinus exenteration, packing and closure using pedicle pericranial flap on 11/05/[address] Lilia PH DHistory of esophagogastroduodenoscopy (EGD) Family History(Updated 01/28/22 @ 17:35 by Cece Rothman PA-C) Mother Diabetes Heart failure Social History(Updated 01/28/22 @ 17:34 by Cece Rothman PA-C) Smoking Status: Never smoker Hx Alcohol Use: Yes Hx Substance Use: No Preferred Language: [place]an Communication Ability: Effective marital status: Current Living Situation: Spouse Feels Safe at Home: Yes Review of Systems Review of Systems: All systems reviewed & are unremarkable except as noted in HPI & below Allergies Allergy/AdvReac Type Severity Reaction Status Date / Time No Known Allergies Allergy Unverified 01/28/22 17:23 Home Medications Medication Instructions Recorded Confirmed Type fluoxetine 40 mg capsule 40 mg PO QAM 01/28/22 01/28/22 History omeprazole 20 mg capsule,delayed 20 mg PO QAM 01/28/22 01/28/22 History release ondansetron HCl 4 mg tablet 8 mg PO Q8 PRN 01/28/22 01/28/22 History simvastatin 20 mg tablet 20 mg PO HS 01/28/22 01/28/22 History Patient History Medical History (Updated 01/28/22 @ 20:28 by Jennifer Real MD) Brain tumor blue cell tumor, large cell neuroendocrine Chronic sinusitis Depression GERD (gastroesophageal reflux disease) HLD (hyperlipidemia) Surgical History (Updated 01/28/22 @ 17:34 by Ccee Rothman PA-C) History of arthroscopic knee surgery History of craniotomy bifronto orbital craniotomy, to approach extra-axial anterior skull base mass, excision of extra-axial intradural anterior skull base mass, excision of extradural nasal component, fat graft harvest from lower left abdominal quadrant, frontal sinus exenteration, packing and closure using pedicle pericranial flap on 11/05/[address] Lilia PH D History of esophagogastroduodenoscopy (EGD) Family History (Updated 01/28/22 @ 17:35 by Cece Rothman PA-C) Mother Diabetes Heart failure Social History (Updated 01/28/22 @ 17:34 by Cece Rothman PA-C) Smoking Status: Never smoker Hx Alcohol Use: Yes Hx Substance Use: No Preferred Language: [place]an Communication Ability: Effective marital status: Current Living Situation: Spouse Feels Safe at Home: Yes Physical Exam Constitutional: WD/WN, vitals as above Eyes: PERRL, conjunctivae normal, anicteric sclerae Neck: trachea midline, no thyromegaly Respiratory: normal respiratory effort, lungs clear to auscultation Cardiovascular: RRR, no murmur, no edema Gastrointestinal (Abdomen): soft, mild tenderness at RUQ, no rebound pain, no distend, BS +, Musculoskeletal: no cyanosis or clubbing, extremities motor strength 5/5 Neurologic: patellar DTR's 2+ bilat, sensation intact Psychiatric: A+Ox3, euthymic affect Results & Data ([facility]) Vital Signs (Past 12 Hours) Vital Signs Temp Pulse Pulse Resp BP BP Pulse Ox 01/28/22 19:00 36.7 C 68 16 144/89 H 97 01/28/22 17:30 68 20 137/96 98 01/28/22 15:18 68 20 114/86 99 01/28/22 14:43 36.6 C 102 H 18 124/91 97 Laboratory Results Abnormal lab results 01/28/22 01/28/22 Range/Units 15:10 17:05 Sodium 134 L (136-145) mmol/L Anion Gap 12 H (3-11) BUN/Creatinine Ratio 20.2 H (10-20) Ur Specific [place] 1.039 H (1.000-1.030) Urine Protein Trace H (Negative) Urine Ketones 4+ H (Negative) Urine Bilirubin 1+ H (Negative) U Hyaline Cast (Auto) 5-10 H (0-5) /lpf U Epithel Cells (Auto) 10-20 H (0-5) /lpf Diagnostic Findings CT SCAN OF THE ABDOMEN AND PELVIS WITH IV CONTRAST CLINICAL HISTORY: Right-sided abdominal pain. Vomiting. COMPARISON STUDY: No priors. TECHNIQUE: Following the IV administration of 90 cc of Optiray 320, CT scan of the abdomen and pelvis is performed from the lung bases to the proximal femora. Images are reviewed in the axial, sagittal, and coronal planes. IV contrast was administered without complication. A dose lowering technique was utilized adhering to the principles of ALARA. FINDINGS: Lung bases: The tip of a central venous infusion port terminates at the cavoatrial junction. The heart is normal in size and without pericardial effusion. The lung bases are clear noting dependent atelectasis. Liver: The contrast-enhanced liver is normal in size, contour, and attenuation. Focal fatty infiltration is seen adjacent to the falciform ligament. There is no intrahepatic biliary ductal dilatation. The hepatic veins and portal veins are patent. Gallbladder: Unremarkable. Spleen: Normal in size and attenuation. Pancreas: Unremarkable. Adrenal glands: Unremarkable. Kidneys: The contrast enhanced kidneys are normal in size and without hydronephrosis. The kidneys enhance symmetrically. Abdominal vasculature: The abdominal aorta is normal in course and caliber noting mild atherosclerotic calcification. Bowel: There is advanced colonic diverticulosis without CT evidence of acute diverticulitis. No bowel obstruction is seen. Residual enteric contrast is suggested throughout the colon. The appendix is well-visualized and normal. Peritoneum: There is no intraperitoneal free air or abdominal ascites. Lymphadenopathy: None. Pelvic viscera: The bladder, prostate, and seminal vesicles are normal as visualized. Skeletal structures: No lytic or blastic lesions are seen. There is moderate to advanced disc space narrowing at L5-S1 with a posterior disc osteophyte complex. 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 IMPRESSION: 1. No acute infectious or inflammatory findings are identified in the abdomen or pelvis. 2. Advanced colonic diverticulosis without CT evidence of acute diverticulitis. 3. Avascular necrosis of the femoral heads.
[2022-01-28] MEDS: MELATONIN 3 MG TAB PO PRN (21:51)
[2022-01-29] MEDS ORDERED: HEPARIN 100 UNIT/ML 5ML FLUSH FLUSH PRN (00:28)
--- NOTE | 2022-01-29 06:10 | Electrocardiogram Report ---
Test Reason : Blood Pressure : / mmHG Vent. Rate : 087 BPM Atrial Rate : 087 BPM P-R Int : 154 ms QRS Dur : 086 ms QT Int : 368 ms P-R-T Axes : 064 -25 005 degrees QTc Int : 442 ms Normal sinus rhythm Normal ECG No previous ECGs available Confirmed by Raghavendra Linares ([id number]) on 01/29/2022 6:10:21 AM Referred By: SELF Confirmed By:Raghavendra Linares
[2022-01-29] MEDS ORDERED: DEXTROSE 50% 50 ML SYRINGE IV ONE (08:11)
--- NOTE | 2022-01-29 08:19 | Ultrasound Report ---
ULTRASOUND RIGHT UPPER QUADRANT ABDOMEN CLINICAL HISTORY: Right upper quadrant abdominal pain. COMPARISON STUDY: Abdominal CT dated 01/28/2022. TECHNIQUE: Real-time, grayscale, and color flow sonography of the right upper quadrant of the abdomen was performed. Images are reviewed in the transverse and longitudinal planes. FINDINGS: Liver: The liver is normal in size and echotexture. There is no intrahepatic biliary ductal dilatatio n. The main portal vein is patent. Gallbladder: There are gallstones and biliary sludge. The gallbladder is mildly distended. There is n o gallbladder wall thickening or pericholecystic fluid. A sonographic Mitchell's sign is reportedly abs ent. The common bile duct measures up to 0.5 cm in diameter. Pancreas: Visualized portions of the pancreatic head and body are normal in appearance. The splenic v ein is patent. Right kidney: Survey images of the right kidney demonstrate normal size and echotexture. There is no hydronephrosis. Ascites: None. IMPRESSION: Cholelithiasis and biliary sludge with no sonographic evidence of acute cholecystitis. ACT 112: Negative or not required by law. Electronically signed by: Clark Yang M.D. 01/29/2022 8:18 AM
[2022-01-29] MEDS: D5W AND NSS 1,000 ML IV SCH ×2 (08:23→20:41)
[2022-01-29] MEDS: SODIUM CHLORIDE 0.9% 1000ML 1,000 ML IV SCH (08:25)
[2022-01-29] MEDS: PANTOprazole 40 MG TAB PO SCH (09:14)
[2022-01-29] MEDS ORDERED: fentaNYL citrate 100 MCG/2 ML VIAL ONE ×2 (09:17→13:14)
[2022-01-29] MEDS ORDERED: MIDAZOLAM HCL 1 MG/ML 2ML VIAL ONE (09:17)
[2022-01-29 10:13] LABS: Basophils # (auto) 0.03 K/uL (0-0.2); Basophils % (auto) 0.7 %; Eosinophils # (auto) 0.06 K/uL (0-0.50); Eosinophils % (auto) 1.4 %; Hematocrit (blood only) 38.1 % (40.1-51.0); Hemoglobin 13.5 g/dl (14.0-18.0); Immature Granulocytes # (auto) 0.01 K/uL (0.00-0.02); Immature Granulocytes % (auto) 0.2 %; Lymphocytes # (auto) 0.94 K/uL (1.2-3.4); Mean Corpuscular Hgb Conc 35.4 g/dL (32.0-36.0); Mean Corpuscular Volume 87.4 fL (80.0-100.0); Mean Platelet Volume 9.6 fL (9.4-12.4); Monocytes % (auto) 11.7 %; Neutrophils # (auto) 2.73 K/uL (1.4-6.5); Platelet Count 203 K/uL (130-400); RDW Coefficient of Variation 12.2 % (11.5-14.5); Red Blood Count 4.36 M/uL (4.63-6.08); White Blood Count 4.27 K/ul (4.8-10.8)
--- NOTE | 2022-01-29 10:33 | Anesthesiology Consultation ---
Date of Service January 29, 2022 Assessment & Plan Chart Review Chart Review: Acceptable Risk for Surgery Consults Requested none History Surgery Operation Date: 01/29/22 11:45 Proposed Procedures p Laparoscopic Cholecystectomy - Jennifer Real MD Height/Weight Height: 6 ft 1 in Weight: 108.2 kg Allergies Allergy/AdvReac Type Severity Reaction Status Date / Time No Known Allergies Allergy Unverified 01/29/22 09:37 Medications Home Medications Medication Instructions Recorded Confirmed Last Taken fluoxetine 40 mg capsule 40 mg PO QAM 01/28/22 01/28/22 Unknown omeprazole 20 mg capsule,delayed 20 mg PO QAM 01/28/22 01/28/22 Unknown release ondansetron HCl 4 mg tablet 8 mg PO Q8 PRN 01/28/22 01/28/22 Unknown simvastatin 20 mg tablet 20 mg PO HS 01/28/22 01/28/22 Unknown Active Medications Generic Name Dose Route Start Last Admin Trade Name Freq PRN Reason Stop Dose Admin Dextrose/Sodium Chloride 1,000 mls @ 80 mls/hr 01/29/22 08:15 01/29/22 08:23 D5w And Nss IV 02/28/22 08:14 80 mls/hr .[id number] DEMETRIA Administration Melatonin 3 mg 01/28/22 21:05 01/28/22 21:51 Melatonin 3 Mg Tab PO 02/27/22 21:04 3 mg HS PRN Administration Sleep Pantoprazole Sodium 40 mg 01/29/22 09:00 01/29/22 09:14 Pantoprazole 40 Mg Tab PO 02/28/22 08:59 40 mg QAM DEMETRIA Administration NPO Date Last Intake of Fluids: 01/28/22 Time Last Intake of Fluids: 23:00 Date Last Intake of Solids: 01/25/22 Time Last Intake of Solids: 18:00 Past Medical History Medical History Brain tumor blue cell tumor, large cell neuroendocrine Chronic sinusitis Depression GERD (gastroesophageal reflux disease) HLD (hyperlipidemia) Past Family History Family History Mother Diabetes Heart failure Past Surgical History Surgical History History of arthroscopic knee surgery History of craniotomy bifronto orbital craniotomy, to approach extra-axial anterior skull base m ass, excision of extra-axial intradural anterior skull base mass, excision of extradural nasal component, fat graft harvest from lower left abdominal quadrant, frontal sinus exenteration, packing and closure using pedicle pericranial flap on 11/05/[address] Lilia PH D History of esophagogastroduodenoscopy (EGD) Social History Smoking Status: Never smoker Hx Alcohol Use: Yes Alcohol type: beer and hard liquor alcohol intake frequency: holidays/special occasions only Hx Substance Use: No Physical Exam Vital Signs Last Vital Signs Temp 36.8 C 01/29/22 09:40 Pulse 76 01/29/22 09:40 Resp 20 01/29/22 09:40 BP 142/85 H 01/29/22 09:40 Pulse Ox 98 01/29/22 09:40 Testing Laboratory Results 01/29/22 09:54 Urine Color Dark Yellow 01/28/22 17:05 Urine Appearance Clear (Clear) 01/28/22 17:05 Urine pH 5.5 (4.5-7.5) 01/28/22 17:05 Ur Specific [place] 1.039 (1.000-1.030) H 01/28/22 17:05 Urine Protein Trace (Negative) H 01/28/22 17:05 Urine Glucose (UA) Negative (Negative) 01/28/22 17:05 Urine Ketones 4+ (Negative) H 01/28/22 17:05 Urine Nitrite Negative (Negative) 01/28/22 17:05 Ur Leukocyte Esterase Negative (Negative) 01/28/22 17:05 Urine WBC (Auto) 1-5 /hpf (0-5) 01/28/22 17:05 Urine RBC (Auto) 0-4 /hpf (0-4) 01/28/22 17:05 U Hyaline Cast (Auto) 5-10 /lpf (0-5) H 01/28/22 17:05 U Epithel Cells (Auto) 10-20 /lpf (0-5) H 01/28/22 17:05 Urine Bacteria (Auto) Negative (Negative) 01/28/22 17:05 01/29/22 01/29/22 01/29/22 09:47 08:47 08:00 POC Glucose 135 H 155 H 69 L* 01/29/22 07:59 POC Glucose 63 L*
[2022-01-29] MEDS ORDERED: ATROPINE SULFATE 0.1 MG/ML 10ML SYR IV PRN (10:34)
[2022-01-29] MEDS ORDERED: HYDROmorphone INJ 2 MG/ML SYR/VIAL IV PRN (10:34)
[2022-01-29] MEDS ORDERED: ePHEDrine sulfate 50 MG/ML AMP IV PRN (10:34)
[2022-01-29] MEDS ORDERED: ONDANSETRON INJ 2 MG/ML 2 ML VIAL IV PRN (10:34)
[2022-01-29] MEDS ORDERED: PROMETHAZINE HCL 12.5 MG in SODIUM CHLORIDE 0.9% 50 ML IV PRN (10:34)
[2022-01-29 10:43] LABS: Albumin Globulin Ratio 1.4 (0.9-2); Albumin Level 3.6 gm/dl (3.4-5.0); BUN Creatinine Ratio 14.6 (10-20); Bilirubin,Total 0.8 mg/dl (0.2-1.0); Calcium 8.9 mg/dl (8.5-10.1); Est GFR (African American) 117.8 ml/min; Est GFR (Non-African American) 101.7 ml/min; Globulin 2.5 gm/dl (2.5-4.0); Magnesium 1.7 mg/dl (1.7-2.4); Potassium 3.8 mmol/L (3.5-5.1); Total Protein 6.1 gm/dl (6.0-8.3)
[2022-01-29] MEDS ORDERED: ceFAZolin 2,000 MG/15 ML IV PUSH IV ONE (11:13)
--- NOTE | 2022-01-29 11:13 | History & Physical Bridge Note ---
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 Patient reports decreased appetite since November associated with persistent nausea, vomiting; and almost daily right upper quadrant discomfort since last 1 week. He reports losing 40 pounds in the past month. He is feeling weak and dizzy lately. In fact he was sent from work today due to feeling dizzy. Admitting labs reviewed, mild hyponatremia likely due to decreased appetite. Admitting CTAP with bilateral femoral head AVN, no other acute findings. Admitting CT head and CXR with no acute findings. With regard to his abdominal pain and abnormal GB US as an outpatient, will consult surgery, clear liquids for now, n.p.o. midnight, on IV fluid, pain and nausea control. No RUQ tenderness on exam, no signs of infection noted, will monitor off of antibiotic for now. With regard to his failure to thrive and weight loss, will consult dietitian. With regard to his avascular necrosis of bilateral femoral heads, patient will need to establish Ortho as an outpatient. GENERAL: Alert and oriented x3. NAD, on RA. Appears ill and older than age. HEENT: No pallor, no icterus. Pupils equal, round and reactive to light. Oral mucosa moist. Healed surgical scar over the scalp in the coronal plane. Bitemporal wasting noted. Xanthelasma bilateral eyes noted. NECK: No JVD, no neck masses. HEART: S1 and S2 heard. Regular rate and rhythm. No murmur, no gallop. Right chest port noted without signs of infection. RESPIRATORY SYSTEM: Normal AP diameter. No accessory muscle use. No wheezing, no crackles. ABDOMEN: Soft, bowel sounds present, nontender, no distention. CENTRAL NERVOUS SYSTEM: No facial droop. Speech is clear. Obeys simple commands. Moves extremities. EXTREMITIES: No edema, no erythema seen. I have seen and examined the patient and have discussed the case with the provider above. I agree with the assessment and plan as stated.
[2022-01-29] MEDS ORDERED: ceFAZolin 2000MG 2,000 MG/15 ML SYR IV SCH (11:25)
[2022-01-29] MEDS ORDERED: LIDOCAINE 1% LOCAL 20 ML VIAL ONE (11:41)
[2022-01-29] MEDS ORDERED: BACITRACIN OINT 15 GM TUBE ONE (11:41)
[2022-01-29] MEDS ORDERED: BUPIVACAINE 0.5 % 5 MG/1 ML MPF 30ML VIAL ONE (11:41)
[2022-01-29] MEDS ORDERED: GLYCOPYRROLATE 0.2 MG/ML VIAL ONE (12:29)
[2022-01-29] MEDS ORDERED: LIDOCAINE 2% 2 ML VIAL/AMP(20MG/ML) INFIL ONE (12:29)
[2022-01-29] MEDS ORDERED: ONDANSETRON INJ 2 MG/ML 2 ML VIAL ONE (12:29)
[2022-01-29] MEDS ORDERED: DEXAMETHASONE SOD INJ 4 MG/ML VIAL ONE (12:29)
[2022-01-29] MEDS ORDERED: PROPOFOL IV EMULSION 10 MG/ML 20 ML VIAL IV ONE ×2 (12:29→13:12)
[2022-01-29] MEDS ORDERED: NEOSTIGMINE METHYLSULFATE 1 MG/ML 10ML VIAL ONE (12:29)
[2022-01-29] MEDS ORDERED: ROCURONIUM BROMIDE 10 MG/ML 5 ML VIAL IV ONE (12:32)
[2022-01-29] MEDS ORDERED: ePHEDrine sulfate 50 MG/ML SYR ONE (13:13)
[2022-01-29] MEDS ORDERED: KETOROLAC 30 MG/ML VIAL ONE (13:22)
--- NOTE | 2022-01-29 13:26 | Post Operative Brief Note ---
Immediate Post Op Note v1 Date of Surgery January 29, 2022 Pre & Post Diagnosis Operation Date: 01/29/22 11:45 Pre-Op Diagnosis: acute cholecystitis, cholelithiasis Post-Op Diagnosis: acute cholecystitis, cholelithiasis, I identified the patient and participated in the time-out.: Yes Procedure Operation Date: 01/29/22 11:45 Actual Procedures p Laparoscopic Cholecystectomy(Not Applicable) - Jennifer Real MD Surgeon Jennifer Real MD [employer] Supervisor ROMEL Hinson Estimated Blood Loss 20 Findings Consistent with Post-Op Diagnosis acute cholecystitis, multiple gallstone Fluids 1000ml Specimens gallbladder Anesthesia Type General Complications none Disposition Accompanied Patient To Recovery: Yes
[2022-01-29] MEDS: fentaNYL citrate 100 MCG/2 ML VIAL IV PRN ×3 (14:12→14:33)
--- NOTE | 2022-01-29 14:21 | Anesthesiology Progress Note ---
Date of Service January 29, 2022 Anesthesia Post Procedure Vital Signs Vital Signs: Temp Pulse Pulse Pulse Resp BP BP 01/29/22 14:20 75 17 01/29/22 14:10 73 18 01/29/22 14:00 66 18 01/29/22 13:50 98.1 F 70 19 01/29/22 09:40 98.2 F 76 20 142/85 H 01/29/22 07:24 97.9 F 68 16 132/76 01/28/22 21:58 97.7 F 70 16 125/79 01/28/22 19:00 98.1 F 68 16 144/89 H 01/28/22 17:30 68 20 137/96 01/28/22 15:18 68 20 114/86 01/28/22 14:43 97.9 F 102 H 18 124/91 BP Pulse Ox 01/29/22 14:20 141/87 H 96 01/29/22 14:10 140/83 98 01/29/22 14:00 143/86 H 100 01/29/22 13:50 146/88 H 100 01/29/22 09:40 98 01/29/22 07:24 96 01/28/22 21:58 96 01/28/22 19:00 97 01/28/22 17:30 98 01/28/22 15:18 99 01/28/22 14:43 97 Pain Intensity Abdomen: Pain Intensity: 5 Transfer of Care Handoff Completed per policy Notes Mental Status: alert / awake / arousable and participated in evaluation Patient Amnestic to Procedure: Yes Nausea / Vomiting: adequately controlled Pain: adequately controlled Airway Patency, RR, SpO2: stable & adequate BP & HR: stable & adequate Hydration State: stable & adequate Anesthetic Complications: no major complications apparent and Pt Satisfied with anesthetic care
[2022-01-29] MEDS ORDERED: ONDANSETRON 4 MG OD TAB PO PRN (15:18)
--- NOTE | 2022-01-29 16:13 | Hospitalist Progress Note ---
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, XRT and chemo - dx October 2020 will obtain records from [facility] and recent MRI results Denies any headache, nausea vomiting or any significant neurodeficit Failure to thrive 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 loss 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 Likely multifactorial Avascular necrosis of b/l femoral heads Incidental finding on imaging denies hip pain will need ortho eval as OP Pt states he has not been taking his prozac or statin due to lack of appetite and nausea, will continue to hold for now Continue prescribed PPI DVT ppx: SQ Lovenox Dispo: med/surg PCP: Dunia FULL CODE Admission and Anticipated Discharge Date Admission Date: January 28, 2022 Subjective 01/29/2022 The patient was seen and examined in medical floor Is a status post laparoscopic cholecystectomy for acute cholecystitis Remains drowsy and complains to have abdominal pain Denies any chest pain, shortness of breath or palpitation Review of Systems Review of Systems: All systems reviewed and are unremarkable except as noted below Physical Exam Physical Exam: Lying in bed with discomfort secondary to recent laparoscopic cholecystectomy Constitutional: well developed, well nourished, + ill appearing and + obese Eyes: PERRL, conjunctivae normal, anicteric sclerae ENMT: external ear and nose normal, oropharynx normal Neck: trachea midline, no thyromegaly Respiratory: no respiratory distress Auscultation: + diminished lung sounds; no crackles and no wheezes Cardiovascular: Rate/Rhythm: regular rate and regular rhythm; not tachycardic Heart Sounds: normal S1 and normal S2; no murmur Extremities: no edema Gastrointestinal (Abdomen): Inspection/Auscultation: + abdomen distended and normal bowel sounds Percussion/Palpation: + abdomen tender and abdomen soft Musculoskeletal: No acute arthritis in any joint Neurologic: Alert, awake and oriented x3 Lymphatic: no cervical or axillary lymphadenopathy Results & Data Results & Data ([facility]) Vital Signs (Past 12 Hours) Vital Signs Temp Pulse Pulse Resp BP BP Pulse Ox 01/29/22 15:30 36.6 C 89 16 139/88 95 01/29/22 15:00 36.5 C 80 16 135/83 94 01/29/22 14:50 81 20 138/90 92 01/29/22 14:40 36.5 C 83 17 144/90 H 93 01/29/22 14:30 79 17 140/86 95 01/29/22 14:20 75 17 141/87 H 96 01/29/22 14:10 73 18 140/83 98 01/29/22 14:00 66 18 143/86 H 100 01/29/22 13:50 36.7 C 70 19 146/88 H 100 01/29/22 09:40 36.8 C 76 20 142/85 H 98 01/29/22 07:24 36.6 C 68 16 132/76 96 Laboratory Results Short CBC 01/29/22 Range/Units 09:54 WBC 4.27 L (4.8-10.8) K/ul Hgb 13.5 L (14.0-18.0) g/dl Hct 38.1 L (40.1-51.0) % Plt Count 203 (130-400) K/uL BMP 01/28/22 01/29/22 15:10 09:54 Sodium 134 L 132 L Potassium 4.3 3.8 Chloride 99 102 Carbon Dioxide 23 24 BUN 19 12 Creatinine 0.94 0.82 Glucose 70 146 H Calcium 9.8 8.9 Liver Function 01/28/22 01/29/22 Range/Units 15:10 09:54 Total Bilirubin 1.0 0.8 (0.2-1.0) mg/dl AST 22 16 (13-39) U/L ALT 39 29 (7-52) U/L Alkaline Phosphatase 81 61 (34-104) U/L Albumin 4.3 3.6 (3.4-5.0) gm/dl Urine 01/28/22 Range/Units 17:05 Urine Color Dark Yellow Urine Appearance Clear (Clear) Urine pH 5.5 (4.5-7.5) Ur Specific [place] 1.039 H (1.000-1.030) Urine Protein Trace H (Negative) Urine Glucose (UA) Negative (Negative) Medications Administered Current Inpatient Medications Acetaminophen (Acetaminophen 325 Mg Tab) 650 mg PO Q4H PRN PRN Reason: pain 1-6/fever Stop: 02/27/22 19:03 Al Hydrox/Mg Hydrox/Simethicone (Aluminum/Magnesium Susp 30 Ml Udc) 30 ml PO Q6H PRN PRN Reason: Dyspepsia Stop: 02/27/22 19:03 Fluoxetine HCl (Fluoxetine Hcl 20 Mg Cap) 40 mg PO QAM DEMETRIA Stop: 03/01/22 08:59 Heparin Sodium (Porcine) (Heparin 100 Unit/Ml 5ml Flush) 5 ml FLUSH PRN PRN PRN Reason: Flush Stop: 02/28/22 00:27 Dextrose/Sodium Chloride (D5w And Nss) 1,000 mls @ 80 mls/hr IV .[id number] [facility] Stop: 02/28/22 08:14 Last Admin: 01/29/22 08:23 Dose: 80 mls/hr Documented by: Magnesium Hydroxide (Magnesium Hydroxide Susp 30 Ml Udc) 30 ml PO Q6H PRN PRN Reason: Constipation Stop: 02/27/22 19:03 Melatonin (Melatonin 3 Mg Tab) 3 mg PO HS PRN PRN Reason: Sleep Stop: 02/27/22 21:04 Last Admin: 01/28/22 21:51 Dose: 3 mg Documented by: Morphine Sulfate (Morphine Sulfate 2 Mg/Ml Carp) 2 mg IV Q6H PRN PRN Reason: severe pain Stop: 02/11/22 19:03 Ondansetron HCl (Ondansetron Inj 2 Mg/Ml 2 Ml Vial) 4 mg IV Q6H PRN PRN Reason: Nausea Stop: 02/27/22 19:03 Ondansetron HCl (Ondansetron 4 Mg Od Tab) 8 mg PO Q8 PRN PRN Reason: Nausea And Vomiting Stop: 02/28/22 15:17 Oxycodone/Acetaminophen (Oxycodone/Acetaminophen 5mg/325mg Tab) 1 tab PO Q4H PRN PRN Reason: Pain Stop: 02/12/22 15:12 Pantoprazole Sodium (Pantoprazole 40 Mg Tab) 40 mg PO [facility] Stop: 02/28/22 08:59 Last Admin: 01/29/22 09:14 Dose: 40 mg Documented by: Polyethylene Glycol (Polyethylene (Miralax) 17 Gm Pack) 17 gm PO DAILY PRN PRN Reason: Constipation Stop: 02/27/22 19:03 Simvastatin (Simvastatin 20 Mg Tab) 20 mg PO [facility] Stop: 02/28/22 20:59
[2022-01-29] MEDS: oxyCODONE/ACETAMINOPHEN 5mg/325mg TAB PO PRN (18:10)
--- NOTE | 2022-01-29 18:21 | Operative Report (OR) ---
DATE OF PROCEDURE: 01/29/2022 PREOPERATIVE DIAGNOSES: Acute cholecystitis, cholelithiasis. POSTOPERATIVE DIAGNOSES: Acute cholecystitis, cholelithiasis. OPERATION: Laparoscopic cholecystectomy. SURGEON: Jennifer Real MD. TELETYPESETTER OPERATOR: Jeimy Powers PA-C. ANESTHESIA: General. ESTIMATED BLOOD LOSS: About 20 mL. FINDINGS: Acute cholecystitis, cholelithiasis. COMPLICATIONS: None. INDICATIONS FOR THE PROCEDURE: This is a 51-year-old gentleman who was admitted to the hospital for right upper quadrant pain with weakness and we did an ultrasound, which showed acute cholecystitis an d cholelithiasis, and also on physical exam, patient had right upper quadrant pain. I recommended to do laparoscopic cholecystectomy, possible open, possible cholangiogram. I did talk to the patient a bout the benefit, risk, alternate procedure. I indicated the risks may include, but not limited to, such as bleeding, infection, injury to other organs, bile leak, may need ERCP, myocardial infarction, DVT, stroke, even a head bleed and . The patient understands. He signed informed consent and I answered all questions. DETAILS OF PROCEDURE: After we identified the patient and verified the procedure, we brought the pat ient to the OR, put the patient in the supine position on the OR table. The patient received SCD on bilateral legs to prevent DVT. Also, patient received 2 grams of Ancef IV for prophylactic antibioti c and the patient received general anesthesia without difficulty. The abdomen was prepped and draped in routine sterile fashion. After timeout, I injected the local anesthesia by using 1% lidocaine mi xed with 0.5% Marcaine just above the umbilicus. Then, I made a small incision just above umbilicus, opened fascia, opened peritoneum. Under direct vision, put a Ridge trocar in, connected to CO2 to create pneumoperitoneum, flow rate at 6 liters per minute, pressure not more than 14 mmHg. Once we got a nice pneumoperitoneum, we put a camera in, looked around the abdomen, it shows normal f inding on the liver; however, the gallbladder shows acute cholecystitis with some omental adhesions t o the gallbladder. Once we confirmed the diagnosis, we put another three 5 mm trocars in the right u pper quadrant. Then, we peeled the omental adhesions to the gallbladder. The gallbladder showed sig nificant distention. Then, we used the grasper to hold the base of gallbladder, put in the direction to the diaphragm, another grasper to hold the pouch of gallbladder, put a lateral to explore the tri angle of [place]. The cystic duct was identified and mobilized. I put two 5 mm metal clips on the proximal cystic duct and one on the distal cystic duct, then used a scissor for transection of cystic duct; rechecked, no bile leak. The cystic artery was identified and mobilized. I put two 5 mm metal clips on the proxi mal cystic artery, one on the distal cystic artery, then used a scissor for transection of cystic art joshua; rechecked, no active bleeding. Then, we used the Bovie to take down gallbladder from liver bed; rechecked, no active bleeding, no bile leak from liver bed. Then, we removed the gallbladder throug h the catch bag. Then, we reinserted the Ridge trocar in, connected to CO2 to create pneumoperitoneum, again looked a round the abdomen, no active bleeding, no bile leak from liver bed. Then, we removed all trocars und er direct vision. No active bleeding from the trocar site. Pneumoperitoneum was released, then I cl osed the umbilical incision fascial layer by using 0 Vicryl [id number] x2, closed subcutaneous l kathryn by using 2-0 Vicryl interruptedly, closed skin by using 4-0 Vicryl continuous running, closed an other three 5 mm trocar site of skin only by using 4-0 Vicryl. Then, we put the dressing on. The patient tolerated the procedure well. All instrument, needle and sponge counts were correct x2 a t the end of the case. The patient was transferred to recovery room in stable condition. The specim en was sent to pathology. After the procedure, I did talk to the patient and patient's family member about the OR finding and the procedure we did, they understand. The promotions assistant, Jeimy, is necessary for this procedure. Her role was to hold the camera, retr action and exposure. Job ID: [id number]
[2022-01-29] MEDS: MELATONIN 3 MG TAB PO PRN (20:40)
[2022-01-29] MEDS ORDERED: SIMVASTATIN 20 MG TAB PO SCH (21:00)
--- NOTE | 2022-01-30 05:26 | Surgery Progress Note ---
Date of Service January 30, 2022 Assessment & Plan (1) Acute cholecystitis due to biliary calculus: Plan: Status post laparoscopic cholecystectomy on 01/29/2022 (postoperative day #1) Continue analgesics Continue antiemetics Continue IV fluid for hydration Consider increasing diet later today Check a.m. labs when available Increase activity as able Consider adding Lovenox or subcutaneous heparin for DVT prevention Admission and Anticipated Discharge Date Admission Date: January 29, 2022 Supervising Physician Co-Signing Physician Notes Dr. Wongpatient awake and alert no distress no acute changes Abdomen flat and soft-we will advance diet as tolerated and okay for discharge home from surgical standpoint Discharge instructions in chart with prescription Follow-up with Dr. Real Subjective Patient is resting comfortably in bed. He notes he is tolerated clear liquid since surgery without nausea or vomiting. He is passing some flatus but no bowel movement since surgery. He is voiding without difficulty. He denies shortness of breath. No fevers, shakes, or chills. He does note some incisional pain which is greatest near his periumbilical incision. Physical Exam Gastrointestinal (Abdomen): Abdomen is soft, nonrigid, nondistended. 4 laparoscopic surgical sites are covered with dressings that are clean, dry, intact. Patient has minimal pain at his laparoscopic incisions with the exception of the periumbilical incision which is painful to palpation. Results & Data ([facility]) Vital Signs (Past 12 Hours) Vital Signs Temp Pulse Resp BP BP Pulse Ox 01/30/22 04:36 36.3 C L 63 15 139/84 95 01/29/22 22:38 36.5 C 83 15 136/84 94 01/29/22 19:54 36.6 C 85 15 146/88 H 93 01/29/22 18:00 36.7 C 84 17 148/90 H 96 PG Care Time/CCT Total # of Minutes Spent Total Time Spent with Patient: Total time spent is greater than 50% in coordination of care (as documented) at patient's floor/unit and/or counseling patient: Coding Level of Care Code None Diagnoses Acute cholecystitis due to biliary calculus K80.00
[2022-01-30] MEDS: PANTOprazole 40 MG TAB PO SCH (07:45)
[2022-01-30] MEDS: oxyCODONE/ACETAMINOPHEN 5mg/325mg TAB PO PRN (07:50)
[2022-01-30 07:51] LABS: Basophils # (auto) 0.02 K/uL (0-0.2); Basophils % (auto) 0.3 %; Eosinophils # (auto) 0.01 K/uL (0-0.50); Eosinophils % (auto) 0.1 %; Hematocrit (blood only) 38.2 % (40.1-51.0); Hemoglobin 13.7 g/dl (14.0-18.0); Immature Granulocytes # (auto) 0.01 K/uL (0.00-0.02); Immature Granulocytes % (auto) 0.1 %; Lymphocytes # (auto) 1.02 K/uL (1.2-3.4); Lymphocytes % (auto) 12.9 %; Mean Corpuscular Hemoglobin 31.6 pg (25.0-34.0); Mean Corpuscular Hgb Conc 35.9 g/dL (32.0-36.0); Mean Platelet Volume 9.4 fL (9.4-12.4); Monocytes # (auto) 0.89 K/uL (0.24-0.82); Monocytes % (auto) 11.2 %; Neutrophils # (auto) 5.98 K/uL (1.4-6.5); Neutrophils % (auto) 75.4 %; Platelet Count 210 K/uL (130-400); RDW Coefficient of Variation 12.5 % (11.5-14.5); RDW Standard Deviation 40.3 fL (36.4-46.3); Red Blood Count 4.34 M/uL (4.63-6.08); White Blood Count 7.93 K/ul (4.8-10.8)
[2022-01-30 08:41] LABS: Albumin Globulin Ratio 1.5 (0.9-2); Albumin Level 3.8 gm/dl (3.4-5.0); BUN Creatinine Ratio 9.6 (10-20); Bilirubin,Total 0.8 mg/dl (0.2-1.0); Creatinine Clr Calc Pharmacy 152.7 ml/min; Est GFR (African American) 123.6 ml/min; Est GFR (Non-African American) 106.6 ml/min; Globulin 2.5 gm/dl (2.5-4.0); Magnesium 1.9 mg/dl (1.7-2.4); Phosphorus 2.8 mg/dl (2.5-4.9); Total Protein 6.3 gm/dl (6.0-8.3)
[2022-01-30] MEDS ORDERED: FLUoxetine HCL 20 MG CAP PO SCH (09:00)
--- NOTE | 2022-01-30 10:45 | Hospitalist Progress Note ---
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 Trevizo OP note possible Urgent Lap Kesha given abd US which showed multiple stones and moderate sludge Had OP EGD 01/27/22 unremarkable, pathology pending Appreciate surgery input and recommendation Status post laparoscopic cholecystectomy for acute cholecystitis He has been stable following surgery Complains to have abdominal pain without any other significant symptoms Has been tolerating diet which has been advanced Is passing gas and ambulating in the room without any difficulties Surgery cleared him to go home and he wants to be home He will be discharged this afternoon Neuroendocrine carcinoma of the brain 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, XRT and chemo - dx October 2020 will obtain records from [facility] and recent MRI results Denies any headache, nausea vomiting or any significant neurodeficit No neurological symptoms Failure to thrive 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 Likely multifactorial Avascular necrosis of b/l femoral heads Incidental finding on imaging denies hip pain will need ortho eval as OP Pt states he has not been taking his prozac or statin due to lack of appetite and nausea, will continue to hold for now Continue prescribed PPI DVT ppx: SQ Lovenox Dispo: med/surg PCP: [facility] FULL CODE Discharge home this afternoon Admission and Anticipated Discharge Date Admission Date: January 29, 2022 Subjective 01/29/2022 The patient was seen and examined in medical floor Is a status post laparoscopic cholecystectomy for acute cholecystitis Remains drowsy and complains to have abdominal pain Denies any chest pain, shortness of breath or palpitation 01/30/2022 The patient was seen and examined in medical floor He is status post laparoscopic cholecystectomy on 01/29/2022 Has been feeling much better with minimal abdominal pain Has been tolerating diet which has been advanced and is ambulating in the room without any difficulties Wants to go home Review of Systems Review of Systems: All systems reviewed and are unremarkable except as noted below Physical Exam Physical Exam: Lying in bed with discomfort secondary to recent laparoscopic cholecystectomy Constitutional: well developed, well nourished, + ill appearing and + obese Eyes: PERRL, conjunctivae normal, anicteric sclerae ENMT: external ear and nose normal, oropharynx normal Neck: trachea midline, no thyromegaly Respiratory: no respiratory distress Auscultation: + diminished lung sounds; no crackles and no wheezes Cardiovascular: Rate/Rhythm: regular rate and regular rhythm; not tachycardic Heart Sounds: normal S1 and normal S2; no murmur Extremities: no edema Gastrointestinal (Abdomen): Inspection/Auscultation: + abdomen distended and normal bowel sounds Percussion/Palpation: + abdomen tender and abdomen soft Musculoskeletal: No acute arthritis in any joint Neurologic: normal touch/pain/proprioception and moves all extremities; no focal motor deficits Psychiatric: A+Ox3, euthymic affect Lymphatic: no cervical or axillary lymphadenopathy Results & Data Results & Data ([facility]) Vital Signs (Past 12 Hours) Vital Signs Temp Pulse Resp BP BP Pulse Ox 01/30/22 07:56 36.5 C 62 16 141/95 H 98 01/30/22 04:36 36.3 C L 63 15 139/84 95 Laboratory Results Short CBC 01/30/22 Range/Units 07:42 WBC 7.93 (4.8-10.8) K/ul Hgb 13.7 L (14.0-18.0) g/dl Hct 38.2 L (40.1-51.0) % Plt Count 210 (130-400) K/uL BMP 01/30/22 07:42 Sodium 137 Potassium 4.0 Chloride 105 Carbon Dioxide 27 BUN 7 Creatinine 0.73 Glucose 102 H Calcium 9.0 Liver Function 01/30/22 Range/Units 07:42 Total Bilirubin 0.8 (0.2-1.0) mg/dl AST 39 (13-39) U/L ALT 52 (7-52) U/L Alkaline Phosphatase 68 (34-104) U/L Albumin 3.8 (3.4-5.0) gm/dl Medications Administered Current Inpatient Medications Acetaminophen (Acetaminophen 325 Mg Tab) 650 mg PO Q4H PRN PRN Reason: pain 1-6/fever Stop: 02/27/22 19:03 Al Hydrox/Mg Hydrox/Simethicone (Aluminum/Magnesium Susp 30 Ml Udc) 30 ml PO Q6H PRN PRN Reason: Dyspepsia Stop: 02/27/22 19:03 Fluoxetine HCl (Fluoxetine Hcl 20 Mg Cap) 40 mg PO QAM DEMETRIA Stop: 03/01/22 08:59 Last Admin: 01/30/22 07:45 Dose: 40 mg Documented by: Heparin Sodium (Porcine) (Heparin 100 Unit/Ml 5ml Flush) 5 ml FLUSH PRN PRN PRN Reason: Flush Stop: 02/28/22 00:27 Last Admin: 01/30/22 07:50 Dose: 5 ml Documented by: Magnesium Hydroxide (Magnesium Hydroxide Susp 30 Ml Udc) 30 ml PO Q6H PRN PRN Reason: Constipation Stop: 02/27/22 19:03 Melatonin (Melatonin 3 Mg Tab) 3 mg PO HS PRN PRN Reason: Sleep Stop: 02/27/22 21:04 Last Admin: 01/29/22 20:40 Dose: 3 mg Documented by: Morphine Sulfate (Morphine Sulfate 2 Mg/Ml Carp) 2 mg IV Q6H PRN PRN Reason: severe pain Stop: 02/11/22 19:03 Ondansetron HCl (Ondansetron Inj 2 Mg/Ml 2 Ml Vial) 4 mg IV Q6H PRN PRN Reason: Nausea Stop: 02/27/22 19:03 Ondansetron HCl (Ondansetron 4 Mg Od Tab) 8 mg PO Q8 PRN PRN Reason: Nausea And Vomiting Stop: 02/28/22 15:17 Oxycodone/Acetaminophen (Oxycodone/Acetaminophen 5mg/325mg Tab) 1 tab PO Q4H PRN PRN Reason: Pain Stop: 02/12/22 15:12 Last Admin: 01/30/22 07:50 Dose: 1 tab Documented by: Pantoprazole Sodium (Pantoprazole 40 Mg Tab) [facility] [place]: 02/28/22 08:59 Last Admin: 01/30/22 07:45 Dose: 40 mg Documented by: Polyethylene Glycol (Polyethylene (Miralax) 17 Gm Pack) 17 gm PO DAILY PRN PRN Reason: Constipation Stop: 02/27/22 19:03 Simvastatin (Simvastatin 20 Mg Tab) 20 mg PO HS [facility] Stop: 02/28/22 20:59 Last Admin: 01/29/22 20:40 Dose: 20 mg Documented by:
--- NOTE | 2022-01-31 07:47 | Discharge Summary ---
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 He was seen in clinic today by general surgery for follow-up with EGD. He recently underwent EGD which was negative for gastritis or ulcers. He persistently has nausea, vomiting and right upper quadrant discomfort and unable to hold food down. He has lost 40 pounds in the past month. He was sent home from work today due to feeling dizzy and unable to stand. Today in clinic he was pale, diaphoretic with mild right upper quadrant pain. He was sent to ED and per Dr. Trevizo will likely need urgent laparoscopic cholecystectomy. Patient states his symptoms started on , november,. He complains of nausea, queasiness and pain to his right upper quadrant epigastrium. He states pain is constant does get worse with meals. He has been unable to tolerate food secondary to significant nausea and queasiness. He describes a sensation as if he was drinking all night and woke up with a hangover and was sick to stomach. The sensation is constant and the smell of food makes it worse. He last ate chicken soup on Tuesday otherwise only tolerating Ensure and water. His is at bedside. He has lost 40 pounds going from 270s to 230s. He denies any sick contacts. He denies fever but admits to constantly being cold. He denies sweats, syncope, chest pain, shortness with, cough, hemoptysis, hematemesis, melena, medic easier, dysuria, increased urgency or frequency with urination. Recently he has felt lightheaded and dizzy with movement secondary to lack of oral intake. He further admits approximately 2 to 3 months ago he used to get sharp stabbing pains in his right upper quadrant that would last 3 to 4 hours. He denies that this was associated with any fatty meals. He states he can occur in the middle the night. He has not been able to take his medications except for omeprazole and zofran. Zofran has helped nausea but still can't eat. He has been following closely with neurosurgery and recently had an MRI. Per at beside they saw 2 concerning spots but want to repeat at end of January. Admission Exam Per Admitting Provider Physical Exam: Constitutional: chronic ill appearing, M, vitals as above, NAD, sitting up in bed, pleasant, conversing easily Head: Normocephalic, Atraumatic, b/l temporal wasting Eyes: PERRL, conjunctivae normal, anicteric sclerae ENMT: external ear and nose normal, oropharynx normal Neck: trachea midline, no thyromegaly normal visual inspection Respiratory: normal respiratory effort, lungs clear to auscultation, no wheeze, rales, rhonchi. Normal insp/exp effort, no accessory muscle use Cardiovascular: RRR, no murmur, no edema Vessels: no JVD or carotid bruit Chest: normal inspection of chest , R ACW Port, no surrounding erythema Abdomen: normal bowel sounds, soft, pain to palp RUQ and epigastrum, no rebound, guarding or tenderness, no hepatosplenomegaly Musculoskeletal: no cyanosis or clubbing, extremities motor strength 5/5 Skin: no rashes, warm and dry normal turgor Neurologic: PERRL, EOMI, accommodation nl, no face palsy, no dysarthria CN's II-XI intact bilaterally and moves all extremities Psychiatric: A+Ox3, euthymic affect Lymphatic: no cervical or axillary lymphadenopathy : deferred Principal Diagnosis Acute cholecystitis Discharge Exam Lying in bed with discomfort secondary to recent laparoscopic cholecystectomy Constitutional well developed, well nourished, + ill appearing and + obese Eyes PERRL, conjunctivae normal, anicteric sclerae ENMT external ear and nose normal, oropharynx normal Neck trachea midline, no thyromegaly Respiratory no respiratory distress Auscultation: + diminished lung sounds; no crackles and no wheezes Cardiovascular Rate/Rhythm: regular rate and regular rhythm; not tachycardic Heart Sounds: normal S1 and normal S2; no murmur Extremities: no edema Gastrointestinal (Abdomen) Inspection/Auscultation: + abdomen distended and normal bowel sounds Percussion/Palpation: + abdomen tender and abdomen soft Neurologic normal touch/pain/proprioception and moves all extremities; no focal motor deficits Psychiatric A+Ox3, euthymic affect Lymphatic no cervical or axillary lymphadenopathy Discharge Data Allergies Allergy/AdvReac Type Severity Reaction Status Date / Time No Known Allergies Allergy Unverified 01/29/22 09:37 Consultations 07/07/22 17:11 ED Decision to Admit Stat 01/28/22 17:40 Consult General Surgery Routine 01/28/22 19:04 Consult Health Information Management Routine 01/30/22 13:05 Burn CD for patient Routine Procedures Performed Operation Date: 01/29/22 11:45 Actual Procedures p Laparoscopic Cholecystectomy(Not Applicable) - Jennifer Real MD Ordered Studies 01/28/22 14:57 CT abd pelvis IV con only Stat CT head/brain wo/w con Stat 01/28/22 20:23 US abdomen limited Urgent Hospital Course (1) Abdominal pain: Due to acute cholecystitis Management as below (2) Failure to thrive: (3) Abnormal gallbladder ultrasound: This is a 51-year-old male who has a significant past medical history of hyperlipidemia, depression, 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 Trevizo OP note possible Urgent Lap Kesha given abd US which showed multiple stones and moderate sludge Had OP EGD 01/27/22 unremarkable, pathology pending Appreciate surgery input and recommendation Status post laparoscopic cholecystectomy for acute cholecystitis He has been stable following surgery Complains to have abdominal pain without any other significant symptoms Has been tolerating diet which has been advanced Is passing gas and ambulating in the room without any difficulties Surgery cleared him to go home and he wants to be home He will be discharged this afternoon Neuroendocrine carcinoma of the brain 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, XRT and chemo - dx October 2020 will obtain records from [facility] and recent MRI results Denies any headache, nausea vomiting or any significant neurodeficit No neurological symptoms Failure to thrive 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 Avascular necrosis of b/l femoral heads Incidental finding on imaging denies hip pain will need ortho eval as OP Pt states he has not been taking his prozac or statin due to lack of appetite and nausea, will continue to hold for now Continue prescribed PPI DVT ppx: SQ Lovenox Dispo: med/surg PCP: [facility] FULL CODE Discharge home this afternoon Total Time Total Time Spent Total Time Spent (In Minutes): 35 minutes Discharge Plan Discharge Items Patient Disposition: Home - Self-Care Reason For Visit: WEIGHT LOSS, ABDOMINAL PAIN Discharge Diagnosis: Acute cholecystitis Condition on Discharge: Fair Activity: As commented below Activity Comment: Light activity for 3 weeks Non-emergency contact: Primary Care Provider and Surgeon Call non-emergency contact if: your pain is not controlled, your temperature is above 101 and your wound has increased drainage Follow-up/Referrals: Joshua Duque MD [Primary Care Provider] - (Your doctor's office will call you with an appointment in 1 week) Diet: Regular Addtl Attending Provider Instructions: See postsurgical discharge instructions 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 Sponge bath and wash hair in meantime. On Tuesday, remove outer dressings and shower. Let water run over area and pat dry. - Leave steri strips on for one week and then remove. They may fall off on their own that is okay. - Call the surgeon's office with any questions or concerns - - (ex. temperature higher than 101 degrees F, excessive bleeding or pain). MEDICATIONS: - Resume previous medications unless instructed otherwise by your surgeon. - May alternate extra strength Tylenol and Ibuprofen as needed for mild to moderate pain - 650 mg Tylenol every 6 hours as needed - Ibuprofen 600 mg every 6 hours as needed (take with food and limit duration of continuous use for no more than 3 days) - Percocet 1 every 6 hours, as needed for moderate to severe pain FOLLOW UP VISIT: - If not already scheduled, please call the office to schedule a two week follow-up appointment. Office number Pending Studies at Discharge: Yes (gallbladder pathology, will be reviewed at follow-up visit) Stand-Alone Forms: [facility], Smoking Cessation Medications and DC Order Prescriptions: New oxycodone-acetaminophen 5-325 mg tablet 1 tab PO Q6H PRN (Reason: pain) Qty: 12 RF: 0 Continued fluoxetine 40 mg capsule 40 mg PO QAM RF: 0 ondansetron HCl 4 mg tablet 8 mg PO Q8 PRN (Reason: Nausea) RF: 0 simvastatin 20 mg tablet 20 mg PO HS RF: 0 omeprazole 20 mg capsule,delayed release(DR/EC) 20 mg PO QAM RF: 0 Discharge Orders: Discharge Order (Routine); Ordered 01/30/22 Ordered By: Abhay Quintana Admission Data Admit Date/Time: 01/29/22 16:54 Attending Provider: Abhay Quintana Admit Provider: Talia Diaz Primary Care Provider: Joshua Duque Other Providers: Talia Diaz ; Jennifer Real Other Interventions: Discharge Summary Assessment (RN) Last Done: 01/30/22 12:46
== END 2022-01-30 14:44 | disposition home or self-care (01) | DRG 418 ==
LOC: ED 14:39 → 3W 14:39 → SUATTDRO 17:40 → 3W 18:52